=== PATIENT | male | born 1950 | race Caucasian/White ===

== ENCOUNTER 2018-07-18 16:36 | Emergency (ER) | payer MEDICARE, OTHER ==
[~2018-07-18] VITALS: Ht 177.8 cm; Wt 72.6 kg
[~2018-07-18 16:36] MED LIST: DILAUDID1 MG/1 ML PO; DILAUDID8 MG PO; LOPRESSOR HCT1 EAC3 PO
[2018-07-18 16:40] VITALS: BP 124/69
--- NOTE | 2018-07-18 16:40 | NUR ---
ED Nurse Note: pt brought by RA from street due to syncope episode. per pt, " I woke up on the street." no visible head injury noted. AAO x4. pt denies he is homeless but refused to provide home address. has hx of paronoid, PTSD and depression. unable to take meds for last 2 weeks. pt respirations even and non-labored noted. very dry skin noted. no open wound noted. per pt, " I had scabies months ago and get treated. but I need oral meds." Addendum: 07/18/18 at 1833 by MARTY ED Nurse Note: Dr. Linder and LEONEL Carrion notified. no sign of rashes noted. on surveillance monitor. will wait for the further order.
--- NOTE | 2018-07-18 16:59 | Diagnostic Imaging Report ---
Indication: Headache. Head trauma Technique: Contiguous 5 mm thick transaxial imaging of the head obtained in a Siemens Sensation [address] scanner. Soft tissue and bone windows generated. Automatic Exposure Control was utilized. Total Dose length Product (DLP): 1463.[address] Dose Index Volume (CTDIvol): 70.38 mGy Comparison: 05/06/2012 Findings: There is mild prominence of the ventricles, basal cisterns, and cerebral sulci consistent with atrophy. Mild, nonspecific, white matter hypoattenuation is noted throughout the brain consistent with chronic small vessel disease. There is no midline shift, edema, acute hemorrhage, mass effect, or abnormal extra-axial fluid collections. Bones are unremarkable. The left vitreous chamber is hyperdense a finding that was similar on the prior occasion and apparently chronic. Surgery has been done. Impression: No acute intracranial bleed, mass effect or edema. Mild atrophy of the brain. Nonspecific white matter hypoattenuation probably due to chronic small vessel disease. The CT scanner at [facility] is accredited by the [employer] and the scans are performed using dose optimization techniques as appropriate to a performed exam including Automatic Exposure control.
[2018-07-18 18:10] LABS: ANION GAP 11 mmol/L (5-15); BLOOD UREA NITROGEN 31 mg/dL (7-18); CARBON DIOXIDE 26 MMOL/L (21-32); CHLORIDE 105 MMOL/L (98-107); CREATININE 1.7 MG/DL (0.55-1.30); POTASSIUM 4.7 MMOL/L (3.5-5.1); SODIUM 142 MMOL/L (136-145)
[2018-07-18 18:16] LABS: BASOPHILS % (AUTO) 1.1 % (0.0-2.0); EOSINOPHILS % (AUTO) 3.5 % (0.0-3.0); HEMATOCRIT 33.8 % (42.0-52.0); HEMOGLOBIN 11.8 G/DL (14.2-18.0); LYMPHOCYTES % (AUTO) 11.6 % (20.0-45.0); MEAN CORPUSCULAR VOLUME 85 FL (80-99); MONOCYTES % (AUTO) 4.6 % (1.0-10.0); NEUTROPHILS % (AUTO) 79.3 % (45.0-75.0); PLATELET COUNT 236 K/UL (150-450); RED BLOOD COUNT 3.97 M/UL (4.70-6.10); WHITE BLOOD COUNT 8.3 K/UL (4.8-10.8)
[2018-07-18 18:24] LABS: ALANINE AMINOTRANSFERASE 26 U/L (12-78); ALBUMIN 3.7 G/DL (3.4-5.0); ALBUMIN/GLOBULIN RATIO 1.1 (1.0-2.7); ALKALINE PHOSPHATASE 83 U/L (46-116); ASPARTATE AMINO TRANSFERASE 26 U/L (15-37); BILIRUBIN,TOTAL 0.5 MG/DL (0.2-1.0); CKMB 4.5 NG/ML (0.0-3.6); CREATINE KINASE 248 U/L (26-308)
[2018-07-18 19:00] VITALS: BP 130/72
--- NOTE | 2018-07-18 19:06 | NUR ---
HAND-OFF: Report given to LEONEL Ulrich.
--- NOTE | 2018-07-18 19:21 | NUR ---
ED Nurse Note: Recieved report from LEONEL Whitney. PT A&Ox4, VSS, will continue to monitor
--- NOTE | 2018-07-18 19:32 | Emergency Room Report ---
History of Present Illness General Chief Complaint: Syncope Source: Patient Present Illness HPI She has brought in by EMS from the streets. He has a psychiatric history. Per report, he is here because he is concerned he passed out. However, when I spoke with the patient he is concerned that he had a history of scabies 2 years ago and feels that he has multiple medical problems related to the scabies. When I asked if he felt that he had scabies again and needed to be treated, he states yes that he needs to be treated with oral medications. He believes that scabies have caused him very severe medical conditions. He is unable to articulate any sensible history. Allergies: Coded Allergies: PENICILLINS (Unverified Allergy, Intermediate, RASH, 05/06/12) MEPERIDINE (Unverified Allergy, Unknown, 07/18/18) PHENYTOIN (Unverified Allergy, Unknown, 07/18/18) Patient History Past Medical History: see triage record, HTN, seizures, other - Cancer Social History: Denies: smoking, alcohol use, drug use Reviewed Nursing Documentation: PMH: Agreed; PSxH: Agreed Nursing Documentation-PMH Past Medical History: No History, Except For Hx Hypertension: Yes Hx Cancer: Yes - R kidney History Of Psychiatric Problem: Yes - Substance Abuse Hx Seizures: Yes Review of Systems All Other Systems: negative except mentioned in HPI Physical Exam Vital Signs Date Time Temp Pulse Resp B/P (MAP) Pulse Ox O2 Delivery O2 Flow Rate FiO2 07/18/18 16:32 99.0 92 14 110/76 (87) 99 Room Air Sp02 EP Interpretation: reviewed, normal General Appearance: no apparent distress, alert, GCS 15, non-toxic Head: normocephalic, atraumatic Eyes: bilateral eye normal inspection, bilateral eye PERRL ENT: hearing grossly normal, normal pharynx, no angioedema, normal voice Neck: full range of motion, supple/symm/no masses Respiratory: chest non-tender, lungs clear, normal breath sounds, no respiratory distress, no retraction, no accessory muscle use, speaking full sentences Cardiovascular #1: regular rate, rhythm, no edema Gastrointestinal: normal bowel sounds, non tender, soft, non-distended, no guarding, no rebound Rectal: deferred Musculoskeletal: back normal, gait/station normal, normal range of motion, non- tender Neurologic: alert, oriented x3, responsive, motor strength/tone normal, sensory intact, speech normal Psychiatric: mood/affect normal, no suicidal/homicidal ideation, other - Paranoid, delusional, psychosis Skin: normal color, no rash, warm/dry, well hydrated Medical Decision Making Diagnostic Impression: Primary Impression: Psychosis Additional Impression: Azotemia ER Course This patient presents with psychosis that I suspect is related to schizophrenia. The patient is off his psychiatric medications. The patient is disorganized, paranoid and delusional. The patient agrees to psychiatric treatment. He states that he does want to go back on his medications. I do not feel that this patient is organized enough for me to prescribe medication and for him to be able to control his current psychosis. He has some azotemia, he was given IV fluids as I suspect this is prerenal in etiology. Patient is cleared for psychiatric placement. Laboratory Tests Test 07/18/18 17:35 White Blood Count 8.3 K/UL (4.8-10.8) Red Blood Count 3.97 M/UL (4.70-6.10) L Hemoglobin 11.8 G/DL (14.2-18.0) L Hematocrit 33.8 % (42.0-52.0) L Mean Corpuscular Volume 85 FL (80-99) Mean Corpuscular Hemoglobin 29.8 PG (27.0-31.0) Mean Corpuscular Hemoglobin Concent 34.9 G/DL (32.0-36.0) Red Cell Distribution Width 12.0 % (11.6-14.8) Platelet Count 236 K/UL (150-450) Mean Platelet Volume 6.4 FL (6.5-10.1) L Neutrophils (%) (Auto) 79.3 % (45.0-75.0) H Lymphocytes (%) (Auto) 11.6 % (20.0-45.0) L Monocytes (%) (Auto) 4.6 % (1.0-10.0) Eosinophils (%) (Auto) 3.5 % (0.0-3.0) H Basophils (%) (Auto) 1.1 % (0.0-2.0) Prothrombin Time 10.4 SEC (9.30-11.50) Prothrombin Time INR 1.0 (0.9-1.1) PTT 26 SEC (23-33) Sodium Level 142 MMOL/L (136-145) Potassium Level 4.7 MMOL/L (3.5-5.1) Chloride Level 105 MMOL/L (98-107) Carbon Dioxide Level 26 MMOL/L (21-32) Anion Gap 11 mmol/L (5-15) Blood Urea Nitrogen 31 mg/dL (7-18) H Creatinine 1.7 MG/DL (0.55-1.30) H Estimate Glomerular Filtration Rate 40.4 mL/min (>60) Glucose Level 117 MG/DL (74-106) H Calcium Level 9.0 MG/DL (8.5-10.1) Total Bilirubin 0.5 MG/DL (0.2-1.0) Aspartate Amino Transferase (AST) 26 U/L (15-37) Alanine Aminotransferase (ALT) 26 U/L (12-78) Alkaline Phosphatase 83 U/L (46-116) Total Creatine Kinase 248 U/L (26-308) Creatine Kinase MB 4.5 NG/ML (0.0-3.6) H Creatine Kinase MB Relative Index 1.8 Troponin I 0.000 ng/mL (0.000-0.056) Total Protein 7.2 G/DL (6.4-8.2) Albumin 3.7 G/DL (3.4-5.0) Globulin 3.5 g/dL Albumin/Globulin Ratio 1.1 (1.0-2.7) EKG Diagnostic Results Rate: normal Rhythm: NSR ST Segments: no acute changes Rhythm Strip Diag. Results EP Interpretation: yes Rate: 80s Rhythm: NSR, no PVC's, no ectopy CT/MRI/US Diagnostic Results CT/MRI/US Diagnostic Results : Imaging Test Ordered: CT head Impression Impression: No acute intracranial bleed, mass effect or edema. Mild atrophy of the brain. Nonspecific white matter hypoattenuation probably due to chronic small vessel disease. Last Vital Signs Date Time Temp Pulse Resp B/P (MAP) Pulse Ox O2 Delivery O2 Flow Rate FiO2 07/18/18 16:40 98.1 86 19 124/69 96 Room Air Disposition: XFER TO PSYCH HOSP/UNIT Condition: Serious CarmeloMargarita bernalMelissa DO July 18, 2018 19:32
[2018-07-18 20:30] LABS: APPEARANCE,URINE CLEAR; BILIRUBIN, URINE NEGATIVE (NEGATIVE); COLOR,URINE BROWN; GLUCOSE, URINE (UA) NEGATIVE (NEGATIVE); KETONES,URINE 1+ (NEGATIVE); LEUKOCYTE ESTERASE ,URINE 1+ (NEGATIVE); NITRITE,URINE NEGATIVE (NEGATIVE); PH,URINE 5 (4.5-8.0); PROTEIN,URINE 2+ (NEGATIVE); UROBILINOGEN,URINE 4 MG/DL (0.0-1.0)
[2018-07-18 21:00] VITALS: BP 132/72
--- NOTE | 2018-07-18 22:30 | NUR ---
ED Nurse Note: received report from LEONEL Ashford, pt reports he doesn't have SI/HI but needs medication, states he needs to have eye surgery and has go to [facility]. pt reports he wants to be treated for scabies, but reports he doens't need placement. will cont monitor. will notify ERMD regarding pt's pain.
--- NOTE | 2018-07-18 22:45 | NUR ---
ED Nurse Note: belongings placed in locker 3
--- NOTE | 2018-07-18 23:00 | NUR ---
ED Nurse Note: pt refused to put med for scabies, pt states he doesn't want to do it at this time.
--- NOTE | 2018-07-19 00:03 | NUR ---
ED Nurse Note: ordered breakfast tray.
[2018-07-19 01:00] VITALS: BP 125/82
--- NOTE | 2018-07-19 01:30 | NUR ---
ED Nurse Note: pt resting at this time, vss, resp even and unlabored on RA, ambulatory w/ steady gait, iv intact. will cont monitor. bed lowest position.
--- NOTE | 2018-07-19 01:30 | NUR ---
ED Nurse Note: pt denies SI/HI/VH/AH.
[2018-07-19 03:00] VITALS: BP 131/68
--- NOTE | 2018-07-19 03:45 | NUR ---
HAND-OFF: Report given to LEONEL Laird and endorsed care, pt sleeping at this time, bed lowest position w/ siderail, vss, resp even and unlabored, no sx distress.
--- NOTE | 2018-07-19 03:55 | NUR ---
HAND-OFF: Recieved report from RN, pt sleeping, will continue to monitor
[2018-07-19] MEDS ORDERED: CLONAZEPAM0.5 MG PO (05:12)
[2018-07-19] MEDS ORDERED: RITALIN20 MG ORAL (05:12)
[2018-07-19 05:34] VITALS: BP 134/72
--- NOTE | 2018-07-19 06:02 | NUR ---
ED Nurse Note: pt reports he wants to go psych facility because he wants to take his medications klonopin and methylphenidate. ERMD notified.
--- NOTE | 2018-07-19 06:24 | NUR ---
ED Nurse Note: Rn and pt applying Elimite cream per order, pt tolerating well. Pt verbalized understanding of medication instructions.
[2018-07-19] MEDS ORDERED: Acetaminophen 500mg (ES) tab ORAL ONE (08:30)
--- NOTE | 2018-07-19 08:37 | NUR ---
ED Nurse Note:pt. is awake and ambulated to the bathroom ,was given pain meds and clonopin
--- NOTE | 2018-07-19 10:38 | Diagnostic Imaging Report ---
Indication: Chest pain Technique: One view of the chest Comparison: none Findings: Lungs and pleural spaces are clear. Heart size is normal. The aorta is tortuous. There is mild thoracic scoliotic deformity Impression: No acute process
[2018-07-19 11:00] VITALS: BP 138/71
--- NOTE | 2018-07-19 11:02 | NUR ---
ED Nurse Note:pt. is calm and cooperative at this time
[2018-07-19] MEDS ORDERED: Bacitracin Oint UD TOPIC ONE ×2 (13:46→14:15)
--- NOTE | 2018-07-19 15:00 | NUR ---
ED Nurse Note:called report to psych hospital- given to Rich
--- NOTE | 2018-07-19 15:40 | NUR ---
ED Nurse Note:[facility], ERMD is aware, pt. is A/Ox4 ambulatory with steady gait
[2018-07-19] MEDS ORDERED: IVERMECTIN3 MG PO (16:09)
--- NOTE | 2018-07-19 16:29 | Cardiology Report ---
APPROVED REPORT EKG Measurement Heart [id number] Normal sinus rhythm Normal ECG
--- NOTE | 2018-07-19 17:02 | Emergency Room Report ---
Physical Exam Vital Signs Date Time Temp Pulse Resp B/P (MAP) Pulse Ox O2 Delivery O2 Flow Rate FiO2 07/18/18 16:32 99.0 92 14 110/76 (87) 99 Room Air Medical Decision Making Homeless Attestation I, The treating physician Dr. Easton, has assessed and agrees that patient is medically stable for discharge to an outpatient disposition. Diagnostic Impression: Primary Impression: Syncope Qualified Codes: R55 - Syncope and collapse Additional Impressions: Psychosis Qualified Codes: F29 - Unspecified psychosis not due to a substance or known physiological condition Azotemia ER Course 67-year-old male presents to ED for syncopal episode Patient initially seen and evaluated by Dr. Limon; please see her note for full history and physical CT negative Labs show mild azotemia otherwise unremarkable. Troponins negative. THC positive Initial assessment was that patient was psychotic and cannot make decisions for himself. however patient was never suicidal or homocidal during ED course. patient was accepted to [place]. Patient states that he does not want to go to this facility. I evaluated the patient. No SI or HI. Not hearing voices. Patient does not appear psychotic and is answering questions appropriately. Patient cannot be held here against his will. Has capacity to make decisions. Not danger to self or others. Patient is requesting to be discharged. We will discharge patient at this time Patient is currently being treated with permethrin for scabies. Is requesting additional medication. I ordered ivermectin here homeless checklist completed. Safe for discharge with close outpatient follow- up. We'll provide referrals diagnosis - syncope, azotemia. stable and discharged to home. followup with PMD. return to ED if symptoms recur/worsen. Labs Test 07/18/18 17:35 07/18/18 20:20 White Blood Count 8.3 K/UL (4.8-10.8) Red Blood Count 3.97 M/UL (4.70-6.10) Hemoglobin 11.8 G/DL (14.2-18.0) Hematocrit 33.8 % (42.0-52.0) Mean Corpuscular Volume 85 FL (80-99) Mean Corpuscular Hemoglobin 29.8 PG (27.0-31.0) Mean Corpuscular Hemoglobin Concent 34.9 G/DL (32.0-36.0) Red Cell Distribution Width 12.0 % (11.6-14.8) Platelet Count 236 K/UL (150-450) Mean Platelet Volume 6.4 FL (6.5-10.1) Neutrophils (%) (Auto) 79.3 % (45.0-75.0) Lymphocytes (%) (Auto) 11.6 % (20.0-45.0) Monocytes (%) (Auto) 4.6 % (1.0-10.0) Eosinophils (%) (Auto) 3.5 % (0.0-3.0) Basophils (%) (Auto) 1.1 % (0.0-2.0) Prothrombin Time 10.4 SEC (9.30-11.50) Prothromb Time International Ratio 1.0 (0.9-1.1) Activated Partial Thromboplast Time 26 SEC (23-33) Sodium Level 142 MMOL/L (136-145) Potassium Level 4.7 MMOL/L (3.5-5.1) Chloride Level 105 MMOL/L (98-107) Carbon Dioxide Level 26 MMOL/L (21-32) Anion Gap 11 mmol/L (5-15) Blood Urea Nitrogen 31 mg/dL (7-18) Creatinine 1.7 MG/DL (0.55-1.30) Estimat Glomerular Filtration Rate 40.4 mL/min (>60) Glucose Level 117 MG/DL (74-106) Calcium Level 9.0 MG/DL (8.5-10.1) Total Bilirubin 0.5 MG/DL (0.2-1.0) Aspartate Amino Transf (AST/SGOT) 26 U/L (15-37) Alanine Aminotransferase (ALT/SGPT) 26 U/L (12-78) Alkaline Phosphatase 83 U/L (46-116) Total Creatine Kinase 248 U/L (26-308) Creatine Kinase MB 4.5 NG/ML (0.0-3.6) Creatine Kinase MB Relative Index 1.8 Troponin I 0.000 ng/mL (0.000-0.056) Total Protein 7.2 G/DL (6.4-8.2) Albumin 3.7 G/DL (3.4-5.0) Globulin 3.5 g/dL Albumin/Globulin Ratio 1.1 (1.0-2.7) Urine Color Brown Urine Appearance Clear Urine pH 5 (4.5-8.0) Urine Specific [place] 1.020 (1.005-1.035) Urine Protein 2+ (NEGATIVE) Urine Glucose (UA) Negative (NEGATIVE) Urine Ketones 1+ (NEGATIVE) Urine Blood Negative (NEGATIVE) Urine Nitrite Negative (NEGATIVE) Urine Bilirubin Negative (NEGATIVE) Urine Urobilinogen 4 MG/DL (0.0-1.0) Urine Leukocyte Esterase 1+ (NEGATIVE) Urine RBC 0-2 /HPF (0 - 0) Urine WBC 2-4 /HPF (0 - 0) Urine Squamous Epithelial Cells None /LPF (NONE/OCC) Urine Bacteria Few /HPF (NONE) Salicylates Level 1.3 ug/mL (2.8-20) Urine Opiates Screen Negative (NEGATIVE) Acetaminophen Level < 2 MCG/ML (10-30) Urine Barbiturates Screen Negative (NEGATIVE) Phencyclidine (PCP) Screen Negative (NEGATIVE) Urine Amphetamines Screen Negative (NEGATIVE) Urine Benzodiazepines Screen Negative (NEGATIVE) Urine Cocaine Screen Negative (NEGATIVE) Urine Marijuana (THC) Screen Positive (NEGATIVE) Serum Alcohol < 3 mg/dL CT/MRI/US Diagnostic Results CT/MRI/US Diagnostic Results : Imaging Test Ordered: CT Head Impression no acute process Last Vital Signs Date Time Temp Pulse Resp B/P (MAP) Pulse Ox O2 Delivery O2 Flow Rate FiO2 07/19/18 11:00 80 18 138/71 99 Room Air 07/19/18 09:29 98.7 Status: improved Disposition: HOME, SELF-CARE Condition: Stable Scripts Ivermectin (Ivermectin) 3 Mg Tablet 3 MG PO ONCE for 1 Day, TAB Prov: Khadar Easton MD 07/19/18 Referrals: [facility] Patient Instructions: Pruritus Khadar Easton MD July 19, 2018 17:02
[2018-07-19 17:12] VITALS: BP 138/71
--- NOTE | 2018-07-19 17:14 | NUR ---
ED Nurse Note:pt. was cleared for d/c by ER MD, pt. refused placement option provided for him , ERMD is aware, pt. is A/Ox4, homeless d/c [place] was done, pt. was provided with food, clothes, bus tocken and shelters information, he received d/c instructions and verbalized understanding, pt. left ER with steady gait and all personal belongings
== END 2018-07-19 17:18 | disposition home or self-care (01) ==
LOC: EDBD 16:36 → EMR 17:08
DX: R55 Syncope and collapse (principal); F29 Unspecified psychosis not due to a substance or known physiological condition; R79.89 Other specified abnormal findings of blood chemistry
CPT/HCPCS: 36415; 70450; 71045; 80053; 80307; 81003; 82550; 82553; 84484; 85025; 85610; 85730; 93005; 96360; 96361; 99284; G0480; 80329